=== PATIENT | male | born 1970 | race Caucasian/White ===

== ENCOUNTER 2016-11-07 17:18 | Emergency (ER) | payer OTHER ==
[~2016-11-07] VITALS: Ht 188 cm; Wt 102.1 kg
[2016-11-07 17:37] VITALS: BP 139/78
--- NOTE | 2016-11-07 18:34 | ED UPPER/LOWER EXTREMITY COMPL ---
History of Present Illness General Chief Complaint: Laceration Procedure Stated Complaint: LEFT FOOT LAC Source: patient Exam Limitations: no limitations Vital Signs & Intake/Output Vital Signs & Intake/Output Vital Signs Date Time Temp Pulse Resp B/P B/P Pulse O2 O2 Flow FiO2 Mean Ox Delivery Rate 11/07 1737 97.3 99 15 139/78 97 Room Air Room Air Allergies Coded Allergies: Penicillins (UNKNOWN 11/07/16) Reconcile Medications Lisinopril/Hydrochlorothiazide (Lisinopril-Hctz 10-12.5 MG Tab) 10 MG-12.5 MG TABLET 1 TAB PO DAILY BP (Reported) Triage Note: PT TO ED FOR C/C OF LAC TO L FOOT. UNSURE OF WHAT CUT HIM. +INCH LAC TO L FOOT, BLEEDING CONTROLLED IN TRIAGE. UNSURE OF LAST TETANUS SHOT. Triage Nurses Notes Reviewed? yes Onset: Abrupt Duration: constant Timing: single episode today Severity: moderate Severity Numbers: 5 Method of Injury: laceration No Modifying Factors: none HPI: Patient is a 45-year-old male with past medical history of hypertension who presents emergency and that today while walking barefoot in a river he cut the bottom of his left lateral aspect of his foot to an unknown sharp object where laceration had occurred. Bleeding was controlled prior to arrival. TETANUS unknown. (LAURIE GUTIERRES) Past History Travel History Traveled to [place] past 21 day No Medical History Any Pertinent Medical History? see below for history Neurological: NONE EENT: NONE Cardiovascular: hypertension Respiratory: NONE Gastrointestinal: NONE Hepatic: NONE Renal: NONE Musculoskeletal: NONE Psychiatric: NONE Endocrine: NONE Blood Disorders: NONE Cancer(s): NONE SPECIFICATIONS CHECKER/Reproductive: NONE Tetanus Vaccine: Surgical History Surgical History: non-contributory Psychosocial History What is your primary language Mont[place]erratian Tobacco Use: Current Daily Use Daily Tobacco Use Amount/Type: => 5 Cigarettes daily ETOH Use: denies use Illicit Drug Use: denies illicit drug use Family History Hx Contributory? No (LAURIE GUTIERRES) Review of Systems Review of Systems Constitutional: Reports: no symptoms. EENTM: Reports: no symptoms. Respiratory: Reports: no symptoms. Cardiovascular: Reports: no symptoms. Gastrointestinal/Abdominal: Reports: no symptoms. Genitourinary: Reports: no symptoms. Musculoskeletal: Reports: see HPI. Skin: Reports: see HPI. Neurological/Psychological: Reports: no symptoms. Hematologic/Endocrine: Reports: see HPI. Immunological: Reports: no symptoms. All Other Systems: Reviewed and Negative (LAURIE GUTIERRES) Physical Exam Physical Exam General Appearance: no apparent distress, alert, comfortable Neurologic/Tendon: normal sensation, normal motor functions, normal tendon functions, responds to pain, no evidence tendon injury, no pulse deficit Skin: normal color, warm/dry Comments: Well-developed well-nourished no apparent distress. HEENT: Atraumatic, extraocular motion intact Neck: Supple, no lymphadenopathy Back: Nontender Respiratory: No respiratory distress Extremities: No edema, full range of motion Neuro: Alert and oriented x3 Psych: Mood affect normal, normal memory normal judgment. Diagram Feet Bottom 1) Noted 2 cm subcutaneous flap laceration with no active bleeding no exposed bone noted tendon (LAURIE GUTIERRES) Progress Differential Diagnosis: arterial insufficiency, compartment syndrome, contusion, dislocation, DVT, fracture, gout, septic arthritis, sprain, tendon injury Plan of Care: Current Medications Sig/Brandon Start time Last Medication Dose Stop Time Status Admin Lidocaine 20 ML ONCE ONE 11/07 1844 UNVr (Lidocaine 1%) 11/07 1845 Tetanus/Diphtheria 0.5 ML ONCE ONE 11/07 1844 UNVr Toxoids Adsorbed 11/07 1845 (Decavac) No concerns of tendon deficit or fracture at this time. Patient had normal steady gait on discharge (LAURIE GUTIERRES) Departure Departure Disposition: HOME OR SELF CARE Condition: Stable Clinical Impression Primary Impression: Laceration of left foot Referrals: BALTA PALACIOS MD (PCP/Family) Additional Instructions: As discussed if you note signs of infection redness, pain, swelling, discharge return to the emergency room. Begin to apply bacitracin to the wound once a day with the bandages provided to the emergency room for the following 5 days then try to leave the area open to improve healing. Return to emergency room in 7-9 days for suture removal. Keep area dry and clean YOU can. Departure Forms: Customer Survey General Discharge Information (LAURIE GUTIERRES) PA/CHARGEBACK SPECIALIST Co-Sign Statement Statement: ED Attending supervision documentation- [] I saw and evaluated the patient. I have also reviewed all the pertinent lab results and diagnostic results. I agree with the findings and the plan of care as documented in the PA's/CHARGEBACK SPECIALIST's documentation. [X] I have reviewed the ED Record and agree with the PA's/CHARGEBACK SPECIALIST's documentation. [] Additions or exceptions (if any) to the PAs/CHARGEBACK SPECIALIST's note and plan are summarized below: [] (WEST RUSSELL,TABITHA Osuna) Procedures Laceration/Wound Repair Laceration/Wound Repair: Wound Location: lower extremity (LEFT FOOT PLANTAR) Wound's Depth, Shape: flap, subcutaneous Wound Length (cm): 2 Wound Explored: clean, no foreign body removed, irrigated extensively Irrigated w/ Saline (ccs): 360 Betadine Prep? Yes Anesthesia: 1% lidocaine Volume Anesthetic (ccs): 5 Wound Repaired With: sutures Suture Size/Type: 5:0 Number of Sutures: 5 Layer Closure? No Progress: Using Betadine initially of sterile technique 5 mL of 1% lidocaine was used for local anesthesia then I used chlorhexidine scrub pads for further sterilization and irrigation of the wound. Margins were revised the suture placement patient tolerated well bacitracin was applied along with Telfa and Glen wrap. PRE/ post-neurovascular was intact. (JACLYN RUDD,LAURIE)
[2016-11-07] MEDS ORDERED: LISINOPRIL-HCT1 EAC2 PO (19:22)
== END 2016-11-07 20:03 ==
LOC: ERH 17:18
DX: S91.312A Laceration without foreign body, left foot, initial encounter (principal); W45.8XXA Other foreign body or object entering through skin, initial encounter; Y92.828 Other wilderness area as the place of occurrence of the external cause; Y93.01 Activity, walking, marching and hiking
CPT/HCPCS: 90471; 90714